=== PATIENT | female | born 1960 | race Caucasian/White ===

== ENCOUNTER 2025-06-04 08:48 | Outpatient (CLI) | payer OTHER, MEDICARE ==
--- NOTE | 2025-06-04 11:15 | RADIOLOGY REPORT ---
CT Chest without intravenous contrast INDICATION: ABNORMAL FINDINGS ON DX IM, OTHER SPECIFIED NONINFLAM DIS OF UTERUS TECHNIQUE: Multidetector spiral CT of the chest was performed from the lung apices to the upper abdomen. Axial, coronal and sagittal multiplanar reformats were performed. Radiation Dose : 1. Chest: CTDI volume is 5.5 mGy. Dose-length product is 193.2 mGy*cm The dose indicators for CT are the volume Computed Tomography (CT) Dose Index (CTDIvol) and the Dose Length Product (DLP), and are measured in units of mGy and mGy-cm, respectively. These indicators are not patient dose, but values generated from the CT scanner acquisition factors. The report includes radiation exposure data for exposures received during this examination. Comparison: None Findings: Lower neck: Normal thyroid. Lungs: No focal consolidation. Mild centrilobular emphysema. 0.3 cm nodule in the left upper lobe image 37 0.6 cm ground-glass nodule in the left upper lobe, image 17 Heart/Vascular Structures: Normal heart size. No pericardial effusion. Vascular calcifications of the aorta. Lymph Nodes: No adenopathy Pleura: No pleural effusion or significant pneumothorax. Musculoskeletal: No acute osseous abnormality. Soft tissues: Normal. Upper abdomen: Innumerable bilobar hepatic masses suspicious for metastatic disease measuring up to 5.8 cm in segment 4. IMPRESSION: 0.3 cm nodule in the left upper lobe. 0.6 cm ground-glass nodule in the left upper lobe. Follow-up recommendations are based upon the 2017 [employer] which are based upon the nodule size and patient risk factor for cancer. A) Ground glass: CT at 6-12 months to confirm persistence, then CT every 2 years until 5 years. B) Part solid: CT at 3-6 months to confirm persistence. If unchanged and solid component remains < 6 mm, annual CT should be performed for 5 years. In practice, part solid nodules cannot be defined as such until >= 6 mm, and nodules < 6 mm do not usually require follow-up. Persistent part solid nodules with solid components >=6 mm should be considered highly suspicious. Innumerable hepatic masses suspicious for metastatic disease. For a single subsolid nodule >= 6 mm in size, follow-up is based upon features:. Radiation optimization: All CT scans at this facility use at least one of these dose optimization techniques: automated exposure control mA and/or kV adjustment per patient size (includes targeted exams where dose is matched to clinical indication) or iterative reconstruction.
== END 2025-06-04 23:59 | disposition home or self-care (01) ==
LOC: RAD 08:48
PROVIDERS: ATTEND Student in an Organized Health Care Education/Training Program
DX: R91.8 Other nonspecific abnormal finding of lung field (principal); N85.8 Other specified noninflammatory disorders of uterus; R16.2 Hepatomegaly with splenomegaly, not elsewhere classified; J43.2 Centrilobular emphysema; R93.89 Abnormal findings on diagnostic imaging of other specified body structures
CPT/HCPCS: 71250